=== PATIENT | male | born 1990 | race American Indian/Alaskan Native ===

== ENCOUNTER 2017-10-09 22:22 | Emergency (ER) | payer SELFPAY ==
[2017-10-09 22:28] VITALS: BP 154/101
[2017-10-09] MEDS ORDERED: TYLENOL ONE (22:30)
[2017-10-09] MEDS ORDERED: TYLENOL PO ONE (22:33)
--- NOTE | 2017-10-10 00:11 | XRay Report ---
FINAL REPORT PROCEDURE: Left hand. TECHNIQUE: Three views. HISTORY: left hand/finger/wrist pain swelling COMPARISON: No prior studies are available for comparison. FINDINGS: The bones appear intact without fracture or dislocation. The joint spaces appear normal. The soft tissues are unremarkable. IMPRESSION: Normal study.
== END 2017-10-10 01:10 | disposition left against medical advice (07) ==
LOC: ED 22:22
DX: M25.532 Pain in left wrist (principal); Z53.21 Procedure and treatment not carried out due to patient leaving prior to being seen by health care provider